=== PATIENT | male | born 1955 | race Caucasian/White ===

== ENCOUNTER 2018-04-14 15:43 | Observation (INO) | payer MEDICARE, OTHER ==
[~2018-04-14] VITALS: Ht 172.7 cm; Wt 140.6 kg
[2018-04-14] MEDS ORDERED: FUROSEMIDE20 MG PO (15:52)
[2018-04-14] MEDS ORDERED: ACYCLOVIR400 MG PO (18:22)
[2018-04-14] MEDS ORDERED: NORCO 7.5-3251 EACH PO (18:22)
[2018-04-14] MEDS ORDERED: METOPROLOL SUC200 MG PO (18:23)
[2018-04-14] MEDS ORDERED: PRADAXA150 MG PO (18:23)
[2018-04-14] MEDS ORDERED: LISINOPRIL2.5 MG PO (18:24)
[2018-04-14] MEDS ORDERED: FUROSEMIDE40 MG PO (18:24)
[2018-04-14] MEDS ORDERED: GLIPIZIDE5 MG PO (18:25)
[2018-04-14] MEDS ORDERED: DILTIAZEM 24HR240 M3 PO (18:25)
[2018-04-14] MEDS ORDERED: LIPITOR40 MG PO (18:25)
[2018-04-14] MEDS ORDERED: PROAIR HFA8.5 GM INH (18:26)
[2018-04-14] MEDS ORDERED: ROPINIROLE HC0.25 MG PO (18:26)
[2018-04-14] MEDS ORDERED: SYMBICORT 16010.2 GM INH (18:27)
[2018-04-14] MEDS ORDERED: SPIRIVA18 MCG INH (18:27)
--- NOTE | 2018-04-14 19:10 | EKG ---
[facility] [address] [place], [place] [address] Signed Atrial fibrillation with rvr Nonspecific ST and T wave abnormality Abnormal ECG No previous ECGs available Confirmed by HELIO JONES DO ([id number]) on 04/14/2018 7:10:20 PM Electronically Signed By: HELIO JONES DO 04/14/181909 PATIENT NAME: OTONIEL KRUSE Electrocardiogram DATE OF : 51 PHYSICIAN: HELIO JONES DO REPORT #: [id number] REPORT IS CONFIDENTIAL AND NOT TO BE RELEASED WITHOUT AUTHORIZATION
--- NOTE | 2018-04-14 21:24 | NUR ---
PT ARRIVED FROM ED PER STRETCHER 1949. ALERT ORIENTED X3. WAS UNSURE OF MEDS WHEN ASKED AND DIDN'T ALWAYS KNOW WHAT THEY WERE FOR. STATES WAS TO BE ON A FEW HR TRIP WITH FRIENDS BUT HAS BEEN AT [email or web address] FOR 2 DAYS WITHOUT MEDS OR FEW MEALS. ON ARRIVAL TO CCU NOTED TO HAVE WHEEZES AND RT HERE, NEB TX GIVEN. GIVEN SANDWICH BOX WHICH HE 100% OF. HAS OBLONG SCABBED AREA ON TOP OF L SHOULDER WHICH IS RESIDUAL OF RECENT SHINGLES. DENIES PAIN. ON CARDIZEM GTT AT 10MG/HR. GIVEN PO MEDS. ASKING ABOUT SOMETHING TO HELP WITH SLEEP HE USUALLY TAKES SMALL AMT MAR[place] FOR AT NIGHT.
--- NOTE | 2018-04-14 21:47 | NUR ---
PT RESTING, HR 80-90'S. DR JONES CALLED TO CLARIFY TIMEING OF LOPRESSOR.
--- NOTE | 2018-04-14 22:48 | NUR ---
AT 220 TURNED CARDIZEM TO 5MG/HR HR 70-80'S AND NOW IS DEC TO 2.5MG/HR HR 70'S. PT DOZING.
--- NOTE | 2018-04-14 23:50 | NUR ---
CONTACTED BY PT'S FAMILY/FRIENDS. THEY TOLD STAFF THAT THEY HAVE BEEN LOOKING FOR HIM AND HAD GONE HOME TO [place] TO RETRIEVE HIS MEDICATIONS. PT DID SPEAK WITH DAKSHA ON PHONE. STORIES VARIE FROM DIFFERENT PARTIES AND PT IS POOR HISTORIAN. PT NOW SITTING AT EDGE OF BED, WANTING TO ORDER BREAKFAST, REMINDED THAT KITCHEN DID NOT OPEN UNTIL 0700(HAD BEEN TOLD THIS) AND THAT IT WAS ONLY 1145. GIVEN PUDDING SNACK. NOW BACK IN BED. CARDIZEM 2.5MG/HR.
--- NOTE | 2018-04-15 01:00 | NUR ---
SUKI, HR 70'-90 .
--- NOTE | 2018-04-15 02:08 | NUR ---
AMB TO BR TO HAVE BM AND PASS GAS. FLUSHED TOILET BEFORE BM COULD BE OBSERVED. RAQUEL BEING UP FAIR HR DID INC BRIEFLY TO 120 BACK TO 80'S QUICKLY. NO SOB, DENIES DIZZYNESS. GIVEN PO LOPRESSOR.
--- NOTE | 2018-04-15 04:08 | NUR ---
PT AWAKE TO VOID. CARDIZEM GTT DC'D. THE LADIES THAT THE PATIENT WAS TRAVELING WITH ARE HERE TO SEE HIM NOW.
--- NOTE | 2018-04-15 05:57 | NUR ---
HAS SLEPT LITTLE TONIGHT. IS ASLEEP AT THIS TIME. HR 88-102, REMAINS OFF CARDIZEM GTT.
--- NOTE | 2018-04-15 06:34 | NUR ---
PT AWAKE, SITTING AT BEDSIDE TO VOID. HR TRENDING UP ENRIQUETA WITH MOVEMENT. CARDIZEM 60MG PO GIVEN EARLY.
--- NOTE | 2018-04-15 07:30 | NUR ---
PT SHIFT REPORT RECEIVED FROM UNDERWRITING SUPPORT MANAGER RN. PT IS SITTING ON BED RIGHT NOW. PT DENIES ANY NEEDS AT THIS TIME. WILL CONTINUE TO CLOSELY MONITOR.
--- NOTE | 2018-04-15 08:30 | NUR ---
PT SHIFT ASSESSMENT COMPLETED. PT HAS 2 FRIENDS IN THE ROOM AT THIS TIME. PT LUNGS ARE CLEAR AND COARSE IN THE LOWER JUSTIN. BOWEL TONES ACTIVE. PT DENIES ANY PAIN AT THIS TIME. PT STATES "I REALLY WANT TO GO BACK HOME TODAY". UPDATED PT THAT I WILL PASS THIS ON TO THE MD THIS AM WHEN HE COMES TO ASSESS THE PATIENT. PT STATES "I FEEL LIKE MY NORMAL SELF". WILL CONTINUE TO CLOSELY MONITOR.
[2018-04-15] MEDS ORDERED: HYDROCODON-ACE1 EAC8 PO (08:56)
--- NOTE | 2018-04-15 09:38 | NUR ---
MED REC COMPLETE
--- NOTE | 2018-04-15 10:00 | NUR ---
PT DENIES ANY NEEDS AT THIS TIME. PT IS UP TO THE EDGE OF THE BED WATCHING OUTSIDE. FRIENDS ARE IN AND OUT OF ROOM. WILL CONTINUE TO CLOSELY MONITOR.
--- NOTE | 2018-04-15 11:56 | NUR ---
PT EATING LUNCH AT THIS TIME. HAVE DISCHARGE PAPERWORK READY. WAITING FOR PATIENT RIDE TO ARRIVE. PER MD GIVE PT HIS METOPROLOL AND CARDIZEM THAT WILL BE DUE. PT TO RESUME HOME MEDICATIONS NORMALLY SCHEDULED THIS EVENING. PT DENIES NEEDING AN OXYGEN TANK FOR THE RIDE, STATES HE HAS ONE. PT STATES HE WILL FOLLOW-UP WITH HIS MD ON FRIDAY. NO OTHER ISSUES AT THIS TIME.
--- NOTE | 2018-04-15 12:50 | NUR ---
PT IS READY FOR DISCHARGE. AWAITING RIDE TO ARRIVE. PT HAD LUNCH AND TOLERATED WELL. PT UP TO BATHROOM AND BACK TO CHAIR. WILL CONTINUE TO CLOSELY MONITOR.
--- NOTE | 2018-04-15 13:08 | NUR ---
REVIEWED PT DISCHARGE INSTRUCTIONS WITH PATIENT AND FRIENDS. PT REPEATED INFORMATION BACK TO THIS RN. PT IV'S DC'D AND BELONGINGS GATHERED. PACKET OF INFORMATION SENT WITH PT. PT BROUGHT TO CAR IN WHEELCHAIR WITH OTHER RN. PT WILL CALL TODAY FOR A FOLLOW-UP WITH HIS PCP. VITALS STABLE. MEDICATIONS ADMINISTERED PRIOR TO DC PER MD. PT AND FRIENDS DENY FURTHER QUESTIONS AT THIS TIME.
== END 2018-04-15 13:10 | disposition home or self-care (01) ==
LOC: ED 15:43 → CCU 15:45
PROVIDERS: ADMIT Student in an Organized Health Care Education/Training Program
DX: I48.91 Unspecified atrial fibrillation (principal); E11.9 Type 2 diabetes mellitus without complications; J44.9 Chronic obstructive pulmonary disease, unspecified; I11.0 Hypertensive heart disease with heart failure; I50.9 Heart failure, unspecified; F17.200 Nicotine dependence, unspecified, uncomplicated; G25.81 Restless legs syndrome; N17.9 Acute kidney failure, unspecified; E83.42 Hypomagnesemia; J96.11 Chronic respiratory failure with hypoxia; Z99.81 Dependence on supplemental oxygen; Z91.14 Patient's other noncompliance with medication regimen; Z23 Encounter for immunization; Z79.01 Long term (current) use of anticoagulants; Z79.84 Long term (current) use of oral hypoglycemic drugs; Z79.891 Long term (current) use of opiate analgesic; Z79.51 Long term (current) use of inhaled steroids; Z79.899 Other long term (current) drug therapy
CPT/HCPCS: 36415; 71045; 80048; 80053; 83735; 83880; 84484; 85025; 85610; 93005; 93010; 94640; 94667; 94668; 96374; 96375; 99285; G0008; G0378; J1815; J3475